=== PATIENT | female | born 2000 | race Two or more races ===

== ENCOUNTER 2024-10-11 17:48 | Emergency (ER) | payer OTHER ==
[~2024-10-11] VITALS: Ht 160 cm; Wt 81.6 kg
[2024-10-11 19:32] LABS: BASO % 0.7 % (0.1-1.2); EOS # 0.43 (0.04-0.54); EOS % 4.5 % (0.7-7.0); LYMPH # 1.56 (1.18-3.74); LYMPH % 16.4 % (19.3-53.1); MEAN PLATELET VOLUME 11.40 fl (9.4-12.4); MONO # 0.70 (0.24-0.82); MONO % 7.4 % (4.7-12.5); NEUT # 6.71 (1.56-6.13); NEUT % 70.8 % (34.0-71.1); RED CELL DISTRIBUTION WIDTH 13.4 % (11.6-14.4)
[2024-10-11 20:08] LABS: COVID-19 AG NEGATIVE (NEGATIVE)
[2024-10-11] MEDS ORDERED: CEFTRIAXONE SODIUM 1,000 MG VIAL IM STA (20:16)
== END 2024-10-11 20:36 | disposition home or self-care (01) ==
LOC: ER 17:48
DX: J06.9 Acute upper respiratory infection, unspecified (principal); Z20.822 Contact with and (suspected) exposure to COVID-19